=== PATIENT | female | born 1990 | race Caucasian/White ===

== ENCOUNTER 2023-05-21 15:52 | Emergency (ER) | payer BC, SELFPAY ==
--- NOTE | 2023-05-21 15:56 | ECG_ITS ---
Measurements Intervals [place] Rate: 83 P: 44 PA: 135 QRS: 37 QRSD: 96 T: 34 QT: 372 QTc: 439 Interpretive Statements SINUS RHYTHM BASELINE ARTIFACT- I, II, III, AVR NORMAL ECG NO PREVIOUS ECG AVAILABLE FOR COMPARISON Electronically Signed On 05-21-2023 16:02:52 ENVIRONMENTAL PROFESSIONAL by Agustin Palumbo D.O.
[2023-05-21 15:57] VITALS: PULSE 89; RESP 22; TEMP 36.6
[2023-05-21 16:02] VITALS: PULSE 78
[2023-05-21 16:08] LABS: Basophils Percent Auto 0.3 % (0.2-1.2); Eosinophils Absolute Auto 0.1 K/mm3 (0-0.3); Hematocrit 34.1 % (37.0-47.0); Hemoglobin 11.4 g/dL (12.0-15.0); Immature Granulocyte Absolute 0.03 K/mm3 (0.00-0.031); Immature Granulocyte Percent A 0.3 % (0-0.5); Lymphocytes Percent Auto 16.1 % (18.3-44.2); Mean Corpuscular HGB Conc 33.4 g/dl (32-36); Mean Corpuscular Hemoglobin 30.5 pg (26-34); Mean Corpuscular Volume 91.2 fl (80-100); Mean Platelet Volume 10.9 fl (7.4-10.4); Monocytes Absolute Auto 0.4 K/mm3 (0.1-0.6); Monocytes Percent Auto 4.4 % (2.6-8.5); Neutrophils Absolute Auto 7.3 K/mm3 (1.3-6.7); Neutrophils Percent Auto 77.9 % (45.5-73.1); Platelet Count Result 188 k/mm3 (150-375); Red Blood Count 3.74 M/mm3 (4.2-5.4); Red Cell Distribution Width 12.6 % (11.5-14.5); White Blood Count 9.3 K/mm3 (4.5-10.0)
[2023-05-21 16:18] LABS: Alanine Aminotransferase 16 U/L (6-35); Alkaline Phosphatase 51 U/L (38-126); Anion Gap 10 mmol/L (8-16); Aspartate Amino Transferase 18 U/L (14-36); Bilirubin,Total 0.3 mg/dL (0.2-1.3); Blood Urea Nitrogen 9 mg/dL (7-17); Calcium 9.5 mg/dL (8.4-10.2); Carbon Dioxide 24 mmol/L (22-30); Chloride 103 mmol/L (98-107); Estimated CRCL calculation 157 ml/min; Estimated Glomerular Filt Rate > 60; Glucose 101 mg/dL (65-110); INR 0.9; Lipase 74 U/L (23-300); Prothrombin Time 12.7 Seconds (11.1-14.7); Sodium 137 mmol/L (137-145)
[2023-05-21 16:19] LABS: Partial Thromboplastin Time 25.4 SECONDS (22.3-36.8)
[2023-05-21 16:30] LABS: Troponin I < 0.012 ng/mL (0.000-0.034)
[2023-05-21 16:32] LABS: Appearance Urine Clear (Clear); Bilirubin Urine Negative (Negative); Blood Urine Negative (Negative); Color Urine Yellow (Yellow); Glucose Urine UA Negative (Negative); Ketones Urine Negative (Negative); Leukocyte Esterase Ur Negative LEU/UL (Negative); Nitrate Urine Negative (Negative); Protein Urine Negative (Negative)
[2023-05-21 16:42] LABS: Add Urine Microscopic? NO
--- NOTE | 2023-05-21 18:01 | ED.CHESTPAIN ---
HPI - Chest Pain General Chief Complaint: Chest Pain Stated Complaint: Chest pain Time Seen by Provider: 05/21/23 16:00 History of Present Illness HPI narrative: Patient is a 33-year-old female who presents ER with symptoms chest pain. Began around 2:00 a.m.. Pressure. Left-sided. No radiation. It occurred just prior to eating and continued after eating. It resolved upon arrival here. No nausea or vomiting. No diaphoresis. No pain with deep breath. She is without hemoptysis. No recent trauma. Patient is 23 weeks . She is feeling baby move. No headache or change in vision. Patient with chronic hypertension and took her labetalol at 3:00 p.m. Related Data Home Medications Medication Instructions Recorded Confirmed albuterol sulfate 90 mcg/actuation 2 puff inhalation Q4H PRN 08/13/22 04/28/23 aerosol inhaler cetirizine 10 mg tablet (Zyrtec) 10 mg PO DAILY PRN 08/13/22 04/28/23 omega 7-rej-cgz-fish oil 1,000 mg 1 cap PO DAILY 08/13/22 04/28/23 (120 mg-180 mg) capsule (Fish Oil) prenat.vits,osmin,znm-ynjv-gizth 1 tablet PO DAILY 08/13/22 04/28/23 sertraline 50 mg tablet 50 mg PO DAILY 08/13/22 04/28/23 Allergies Allergy/AdvReac Type Severity Reaction Status Date / Time aspirin Allergy Severe SOB Verified 04/28/23 08:19 ibuprofen Allergy Severe SOB Verified 04/28/23 08:19 NSAIDS (Non-Steroidal Allergy Severe SOB Verified 04/28/23 08:19 Anti-Inflamma Review of Systems Review of Systems: All systems reviewed & are unremarkable except as noted in HPI and below Constitutional: Constitutional: Reports no additional constitutional complaints ENT: Reports system reviewed and no additional complaints, except as documented Cardiovascular: Cardiovascular: Reports chest pain, Denies rapid heart rate and Denies radiating jaw, neck or arm pain Respiratory: Respiratory: Denies cough, Denies dyspnea and Denies wheezing Gastrointestinal: Gastrointestinal: Reports no additional gastrointestinal complaints Genitourinary: Genitourinary: Reports no additional female genitourinary complaints Integumentary/Breasts: Skin/Breast: Reports system reviewed and no additional complaints, except as docu PMFSH Past Medical History Medical History Anxiety Asthma Hypertension Sleep apnea Surgical History Surgical History [place] teeth extracted Family History Family History Grandparent Breast cancer, Onset Age: 40 Mother Asthma Hypertension Breast cancer, Onset Age: 59 Father Hypertension Sibling Hypertension Anxiety Social History Social History Smoking status: Never smoker Alcohol intake: current Alcohol use details: socially; seldom Substance use: never Substance use type: does not use Lack of Transportation: No Lack of Food: Never True Current Housing: I Have Housing Concerned About Future Housing: No Difficulty Paying Gas/Electric Bills: No Difficulty Paying for Meds: No Currently Unemployed: No Education: Bachelor's Degree Difficulty w/ Childcare or Family Care: No Living arrangements: with family Occupation/Education: occupation 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 HEAD: Normocephalic, atraumatic. ENT: Mucous membranes moist. NECK: Supple. CHEST: Clear to auscultation. No respiratory distress. HEART: Regular rate and rhythm. Normal peripheral pulses. ABDOMEN: Soft, nontender, nondistended. EXTREMITIES: Normal range of motion. No edema. SKIN: Warm, dry, no rash. NEURO: Alert and o
--- NOTE | 2023-05-21 19:06 | ECG_ITS ---
Measurements Intervals [place] Rate: 76 P: 24 RI: 140 QRS: 27 QRSD: 96 T: 12 QT: 391 QTc: 442 Interpretive Statements SINUS RHYTHM BASELINE WANDER- III, AVF, V3 NORMAL ECG COMPARED TO ECG 05/21/2023 16:02:42 NO SIGNIFICANT CHANGES Electronically Signed On 05-21-2023 19:34:34 COMMUNICATIONS OPERATOR by Agustin Palumbo D.O.
[2023-05-21 19:17] VITALS: PULSE 75
[2023-05-21 19:18] VITALS: O2SAT 100
[2023-05-21 19:19] VITALS: BP 146/66; PULSE 76; RESP 27; TEMP 36.4; O2SAT 98
[2023-05-21 19:35] LABS: Troponin I < 0.012 ng/mL (0.000-0.034)
== END 2023-05-21 19:56 | disposition home or self-care (01) ==
PROVIDERS: Emergency Provider Emergency Medicine; PCP Family Medicine
DX: R07.89 Other chest pain (principal); J45.909 Unspecified asthma, uncomplicated; I10 Essential (primary) hypertension; G47.30 Sleep apnea, unspecified; F41.9 Anxiety disorder, unspecified
CPT/HCPCS: 36415; 80053; 81003; 83690; 84484; 85025; 85610; 85730; 93005; 99284

== ENCOUNTER 2023-08-27 16:02 | Inpatient (IN) | payer BC, SELFPAY ==
[2023-08-27] VITALS (14 sets, daily range): BP systolic 134–156; BP diastolic 56–81; PULSE 57–77; TEMP 36.3–36.6; BMI 59.5
[2023-08-27 16:52] LABS: Basophils Percent Auto 0.1 % (0.2-1.2); Eosinophils Absolute Auto 0.1 K/mm3 (0-0.3); Eosinophils Percent Auto 0.8 % (0-4.4); Hematocrit 32.7 % (37.0-47.0); Hemoglobin 11.2 g/dL (12.0-15.0); Immature Granulocyte Absolute 0.02 K/mm3 (0.00-0.031); Immature Granulocyte Percent A 0.3 % (0-0.5); Lymphocytes Absolute Auto 1.45 K/mm3 (0.9-3.2); Lymphocytes Percent Auto 19.4 % (18.3-44.2); Mean Corpuscular HGB Conc 34.3 g/dl (32-36); Mean Corpuscular Volume 87.7 fl (80-100); Mean Platelet Volume 11.3 fl (7.4-10.4); Monocytes Absolute Auto 0.4 K/mm3 (0.1-0.6); Neutrophils Absolute Auto 5.6 K/mm3 (1.3-6.7); Neutrophils Percent Auto 74.4 % (45.5-73.1); Platelet Count Result 194 k/mm3 (150-375); Red Blood Count 3.73 M/mm3 (4.2-5.4); Red Cell Distribution Width 13.2 % (11.5-14.5); White Blood Count 7.5 K/mm3 (4.5-10.0)
--- NOTE | 2023-08-27 16:58 | LDADM ---
This patient, Mariajose Sheth, was admitted to Labor/Delivery/Recovery 108 on 08/27/23 at 16:02. Plans for labor, pain management and were discussed with patient. Patient/family oriented to hospital policies and general routines including ID bracelet, bed and alarms, visiting hours, pain management, procedures, bathroom and other care routines, personal items, smoking policy, room service/diet and guest tray routines, security routines, and visiting hours. Patient/Family are encouraged to report perceived risks to care and to ask questions if they do not understand what they are told or what they should do. See OBIX for further documentation.
[2023-08-27 17:08] LABS: Alanine Aminotransferase 14 U/L (6-35); Albumin Level 3.8 g/dL (3.5-5.1); Alkaline Phosphatase 77 U/L (38-126); Anion Gap 7 mmol/L (4-12); Aspartate Amino Transferase 17 U/L (14-36); Bilirubin,Total 0.3 mg/dL (0.2-1.3); Blood Urea Nitrogen 11 mg/dL (7-17); Calcium 9.4 mg/dL (8.4-10.2); Carbon Dioxide 21 mmol/L (22-30); Chloride 107 mmol/L (98-107); Estimated Glomerular Filt Rate > 60; Glucose 93 mg/dL (65-110); Potassium 4.1 mmol/L (3.4-5.0); Sodium 135 mmol/L (137-145); Uric Acid 7.5 mg/dL (2.5-7.5)
[2023-08-27] MEDS: DINOPROSTONE 10 MG VAG INSERT VAGINAL (17:19)
[2023-08-27 17:46] LABS: HIV 1/2 Ab P24 Ag Result Negative (Negative)
--- NOTE | 2023-08-27 17:53 | WPDANESEPP ---
Anes - Eval Pre Procedure Procedure: labor epidural Date/Time: 08/27/23 17:53 Surgeon: ozzy Preop Diagnosis: pain during labor Pre Op Diagnosis: IOL Patient Data Age: 33 Gender: F Height: 1.7 m Weight: 172.5 kg Last Vital Signs Pulse 57 L 08/27/23 17:31 BP 154/69 H 08/27/23 17:31 O2 Del Method Room Air 08/27/23 16:56 Allergies Allergy/AdvReac Type Severity Reaction Status Date / Time aspirin Allergy Severe SOB Verified 08/26/23 17:27 ibuprofen Allergy Severe SOB Verified 08/26/23 17:27 NSAIDS (Non-Steroidal Allergy Severe SOB Verified 08/26/23 17:27 Anti-Inflamma Home Medications Medication Instructions Recorded Confirmed Type cetirizine 10 mg tablet (Zyrtec) 10 mg PO DAILY PRN Allergic 08/13/22 08/26/23 History Symptoms omega 4-zae-jbb-fish oil 1,000 mg 1 cap PO DAILY 08/13/22 08/26/23 History (120 mg-180 mg) capsule (Fish Oil) prenat.vits,osmin,yde-gcgf-uelfs 1 tablet PO DAILY 08/13/22 08/27/23 History ondansetron HCl 4 mg tablet 4 mg PO Q6H PRN nausea and 04/28/23 08/27/23 Rx vomiting #30 tabs famotidine 20 mg tablet 20 mg PO DAILY #14 tabs 05/21/23 08/27/23 Rx sertraline 100 mg tablet (Zoloft) 100 mg PO DAILY #90 tabs 07/15/23 08/26/23 Rx albuterol sulfate 90 mcg/actuation 2 puff inhalation Q4H PRN 07/27/23 08/26/23 Rx aerosol inhaler shortness of breath or wheezing #6.7 grams labetalol 200 mg tablet 600 mg PO Q8H 08/19/23 08/26/23 History ferrous sulfate 27 mg iron tablet 65 mg PO DAILY 08/27/23 08/27/23 History Laboratory Tests 08/27/23 08/27/23 08/27/23 16:45 16:45 16:45 WBC 7.5 K/mm3 (4.5-10.0) RBC 3.73 L M/mm3 (4.2-5.4) Hgb 11.2 L g/dL (12.0-15.0) Hct 32.7 L % (37.0-47.0) MCV 87.7 fl (80-100) MCH 30.0 pg (26-34) MCHC 34.3 g/dl (32-36) RDW 13.2 % (11.5-14.5) Plt Count 194 k/mm3 (150-375) MPV 11.3 H fl (7.4-10.4) Immature Gran % (Auto) 0.3 % (0-0.5) Neut % (Auto) 74.4 H % (45.5-73.1) Lymph % (Auto) 19.4 % (18.3-44.2) [place] % (Auto) 5.0 % (2.6-8.5) Eos % (Auto) 0.8 % (0-4.4) Baso % (Auto) 0.1 L % (0.2-1.2) Lymph # (Auto) 1.45 K/mm3 (0.9-3.2) [place] # (Auto) 0.4 K/mm3 (0.1-0.6) Eos # (Auto) 0.1 K/mm3 (0-0.3) Baso # (Auto) 0.0 K/mm3 (0.0-0.1) Abs Immat Gran (auto) 0.02 K/mm3 (0.00-0.031) Absolute Neuts (auto) 5.6 K/mm3 (1.3-6.7) Absolute Nucleated RBC 0.000 K/mm3 (0.0-0.012) Nucleated RBC % 0.0 % (0.0-0.2) Sodium 135 L mmol/L Cancelled (137-145) Potassium 4.1 mmol/L Cancelled (3.4-5.0) Chloride 107 mmol/L (98-107) Carbon Dioxide Anion Gap BUN Creatinine Estim Creat Clear Calc Estimated GFR Glucose Uric Acid Calcium Total Bilirubin AST ALT Alkaline Phosphatase Total Protein Albumin RPR HIV 1&2 Ab/P24 Ag 4thGn Blood Type Antibody Screen 08/27/23 08/27/23 08/27/23 16:45 16:45 16:45 WBC RBC Hgb Hct MCV MCH MCHC RDW Plt Count MPV Immature Gran % (Auto) Neut % (Auto) Lymph % (Auto) [place] % (Auto) Eos % (Auto) Baso % (Auto) Lymph # (Auto) [place] # (Auto) Eos # (Auto) Baso # (Auto) Abs Immat Gran (auto) Absolute Neuts (auto) Absolute Nucleated RBC Nucleated RBC % Sodium Potassium Chloride Cancelled
--- NOTE | 2023-08-27 20:56 | PM.IMHP ---
H&P: HPI History of Present Illness Date/Time: 08/27/23 20:56 Chief Complaint: induction of labor Narrative: Mariajose is a 33yo @ 37.0wks who presents to L&D for scheduled IOL. She has hard to treat HTN and has required multiple dosage increased in her third trimester. She has been seeing MFM and undergoing twice weekly ANT. She recently did a 24 hour urine protein collection; 180g noted. She denies symptoms of PEC. Feeling good movement. No VB or LOF. Her is complicated by: - CHTN on labetalol 200mg BID, MFM increased to 400mg TID --> 500mg TID @ 31wks --> 600mg TID 35wks... has ASA ALLERGY - AMA; MFM for scans/NIPT - Morbid obesity; pre-preg BMI 54 - Asthma - Sleep apnea - Anxiety on zoloft 100 - Rubella non-immune - Covid @ 32wga - EFW 89%ile, AC >99%ile on recent MFM scan Review of Systems Constitutional: Constitutional: Denies chills, Denies fever(s) and Denies headache(s) Eyes: Eyes: Denies change in vision ENT: Denies headache(s) Cardiovascular: Cardiovascular: Denies chest pain and Denies dyspnea Respiratory: Respiratory: Denies dyspnea Genitourinary: Genitourinary: Denies abnormal vaginal bleeding and Denies vaginal discharge Neurologic: Denies headache(s) Psychiatric: Psychiatric: Denies anxiety and Denies depression [facility] Past Medical History Medical History (Updated 08/27/23 @ 21:03 by Chana Cheema MD) Anxiety Asthma Hypertension Morbid obesity with BMI of 50.0-59.9, adult Sleep apnea Surgical History Surgical History [place] teeth extracted Family History Family History Grandparent Breast cancer, Onset Age: 40 Mother Asthma Hypertension Breast cancer, Onset Age: 59 Father Hypertension Sibling Hypertension Anxiety Social History Social History Smoking status: Never smoker Alcohol intake: current Alcohol use details: socially; seldom Substance use: never Substance use type: does not use Do You Feel Safe in your Home?: Yes Lack of Transportation: No Lack of Food: Never True Current Housing: I Have Housing Concerned About Future Housing: No Difficulty Paying Gas/Electric Bills: No Difficulty Paying for Meds: No Currently Unemployed: No Education: Bachelor's Degree Difficulty w/ Childcare or Family Care: No Living arrangements: with family Occupation/Education: occupation 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 Gender identity (if verbalized by the patient): Female Sexual Orientation (if Verbalized by the Patient): Straight or Heterosexual Spiritual care concerns: No Meds Home Medications and Allergies Home Medications Medication Instructions Recorded Confirmed Type cetirizine 10 mg tablet (Zyrtec) 10 mg PO DAILY PRN Allergic 08/13/22 08/26/23 History Symptoms omega 6-jyx-ult-fish oil 1,000 mg 1 cap PO DAILY 08/13/22 08/26/23 History (120 mg-180 mg) capsule (Fish Oil) prenat.vits,osmin,vmg-hguy-nyvbi 1 tablet PO DAILY 08/13/22 08/27/23 History ondansetron HCl 4 mg tablet 4 mg PO Q6H PRN nausea and 04/28/23 08/27/23 Rx vomiting #30 tabs famotidine 20 mg tablet 20 mg PO DAILY #14 tabs 05/21/23 08/27/23 Rx sertraline 100 mg tablet (Zoloft) 100 mg PO DAILY #90 tabs 07/15/23 08/26/23 Rx albuterol sulfate 90 mcg/actuation 2 puff inhalation Q4H PRN 07/27/23 08/26/23 Rx aerosol inhaler shortness of breath or wheezing #6.7 grams labetalol 200 mg tablet 600 mg PO Q8H 08/19/23 08/26/23 History ferrous sulfate 27 mg iron tablet 65 mg PO DAILY 08/27/23 08/27/23 History Allergies Allergy/AdvReac Type Severity Reaction Status Date / Time aspirin Allergy Severe SOB Verified 08/26/23 17:27 ibuprofen Allergy Severe SOB Verified 08/26/23 17:27 NSAIDS (Non-Steroidal Allergy Severe SOB Verified 08/26/23 17:27 Anti
[2023-08-27] MEDS: LABETALOL HCL 100 MG TABLET 600 MG PO (23:43)
[2023-08-28] VITALS (58 sets, daily range): BP systolic 134–166; BP diastolic 63–88; PULSE 56–80; RESP 16–18; TEMP 36.4–37
[2023-08-28] MEDS: SERTRALINE HCL 50 MG TABLET 100 MG PO (07:14)
[2023-08-28] MEDS: LABETALOL HCL 100 MG TABLET 600 MG PO ×3 (07:15→22:05)
[2023-08-28] MEDS: miSOPROStol 25 MCG TABLET PO (07:16)
--- NOTE | 2023-08-28 07:34 | PM.OBPNLAB ---
Pain Control Date/time seen: 08/28/23 07:34 Pain control: tolerating well Pelvic Exam Dilation (cm): 1 Effacement (%): 50 station: -2 Amniotic membrane status: Intact Contractions Monitor mode: External Contraction pattern: Irregular Status status: Category l Assessment and Plan Assessment: induction ongoing Plan: continuous present management Comments: cytotec 25mcg buccal; will reassess after that BPs in moderate range; pt asymptomatic
[2023-08-28] MEDS: miSOPROStol 25 MCG TABLET VAGINAL (12:00)
[2023-08-28 12:23] LABS: Rapid Plasma Reagin Non-Reactive (NonReactive)
[2023-08-28] MEDS: miSOPROStol 25 MCG TABLET 50 MCG PO (16:20)
[2023-08-28] MEDS: DINOPROSTONE 10 MG VAG INSERT VAGINAL (21:35)
[2023-08-28] MEDS: MAGNESIUM HYDROXIDE SUSP 30 ML UDC PO (23:39)
[2023-08-29] VITALS (100 sets, daily range): BP systolic 101–163; BP diastolic 55–84; PULSE 51–75; RESP 11–20; TEMP 36.2–37.6; O2SAT 93–100
[2023-08-29] MEDS: LABETALOL HCL 100 MG TABLET 600 MG PO ×2 (05:50→17:16)
[2023-08-29] MEDS: ONDANSETRON INJ 4 MG/2 ML VIAL IV PUSH (08:10)
[2023-08-29] MEDS: SERTRALINE HCL 50 MG TABLET 100 MG PO (09:52)
[2023-08-29] MEDS: OXYTOCIN 30 UNITS/NS 500 ML 30 UNITS/500 ML BAG 6 UNITS IV CONT (10:59)
[2023-08-29] MEDS: LACTATED RINGERS 1,000 ML 125 ML IV CONT ×2 (10:59→12:47)
--- NOTE | 2023-08-29 11:56 | PM.OBPNLAB ---
Pain Control Date/time seen: 08/29/23 11:56 Pain control: tolerating well Pelvic Exam Dilation (cm): 0 Effacement (%): 0 station: -4 Amniotic membrane status: Intact Contractions Monitor mode: External Contraction pattern: Irregular Status status: Category l Assessment and Plan Assessment: induction ongoing Plan: Comments: cervix was evaluated and noted to be closed. station was assessed at -4. Discussed these findings with the patient despite 2 doses of cervidil and 3 doses of cytotec. Discussed primary for failed IOL vs coninued IOL with pitocin. Given patients whittaker score and remote from delivery status, decision was made to proceed with . Risks, benfits, alternatives discussed at length.
[2023-08-29] MEDS: AZITHROMYCIN 500 MG/NS 250 ML 500 MG/250 ML BAG 250 MG IVPB (12:05)
[2023-08-29] MEDS: FAMOTIDINE 20 MG/2 ML VIAL IV PUSH (12:48)
[2023-08-29] MEDS: ceFAZolin 3 GM/D5W 100 ML 100 ML IVPB (13:09)
--- NOTE | 2023-08-29 14:11 | W.PM.OBCSD ---
OB - Delivery Note Procedure Delivery date: 08/29/23 Pre-op diagnosis: Arrest of Dilation and Preeclampsia w/o severe features Post-op Diagnosis: Same Induction method: Per Cervidil Protocol Delivery augmentation: Pitocin Delivery monitor: External FHT Prior to decision for section, ACOG/SMFM labor guidelines were considered and discussed with the patient and staff. Decision made to proceed with the section.: Yes Procedure Performed: Primary Primary branch: low cervical, transverse Surgeon: Zaid Hope MD Anesthesia type: Spinal Description of Procedure/Findings: The patient was taken to the operating room. A combined spinal epidural anesthesic was administered and found to be adequate at a t-10 level. The patient was placed in a supine position with a slight left lateral tilt. A robles catheter was placed with return of clear urine. A Bovie grounding pad was placed. Surgical prep was performed and surgical drapes were placed. A surgical time out was performed. A Pfannenstiel skin incision was then made with the scalpel and carried through to the underlying layer of fascia. The fascia was then incised in the midline and the incision was extended laterally with the Mccrary scissors. The superior aspect of the fascia was then grasped with the Lorenzo clamps, elevated, and the underlying rectus muscles dissected off bluntly and sharply. Attention was then turned to the inferior aspect of this incision which, in a similar fashion, was grasped, tented up with the Lorenzo clamps, and the rectus muscles dissected off both bluntly and sharply. The rectus muscles were then in the midline. The peritoneum was identified and entered bluntly. The peritoneal incision was then extended superiorly and inferiorly with good visualization of the bladder. An Leonides ring retractor was placed for better visualization. The uterus was inspected for rotation. A low-transverse uterine incision was made sharply with the scalpel and entry was made into the uterine cavity. An amniotomy was made and copious amounts of clear fluid were noted on return. The uterine incision was extended laterally bluntly. The fetus was delivered atraumatically. The nose and mouth were suctioned with a bulb syringe. The umbilical cord was clamped twice and cut. The infant was handed off to the waiting staff. At the time of the delivery, the had good color, tone and grimace. The cried with minimal stimulation. A second segment of umbilical cord was clamped and cut for cord blood gasses. Cord blood was collected for determination of the blood type and for direct Pagan. The placenta was delivered spontaneously without difficulty. The placenta appeared grossly normal and complete. The uterus was exteriorized and cleared of all clots and debris. The uterine incision was repaired using 0-monocryl suture in a running fashion. A second layer of 0 Monocryl suture was used in an imbricating fashion to obtain excellent hemostasis and uterine strength. The uterine closure was inspected for hemostasis. Hemoderm powder was placed on the hysterotomy. The posterior aspect of the uterus and the broad ligaments were inspected and the posterior cul-de-sac cleared of fluid and blood clots. The uterine closure was again inspected and found to be hemostatic. The ring retractor was removed from the abdominal cavity. The pericolic gutters were inspected and were cleared of all blood clots and debris. The uterine closure was then re inspected to ensure hemostasis as were all subfascial tissues. The peritoneum was closed using 3-0 vicryl in a running fashion. The fascia was reapproximated with 0-vicryl in a running fashion. The subcutaneous tissue was irrigated and hemostasis achieved with electrocautery. It was reapproximated with 3-0 vicryl in a running fashion. The skin was closed with bernard. A sterile PICCO vacuum dressing was applied to the wound. The patient
[2023-08-29] MEDS: fentaNYL CITRATE INJ (*CRX) 100 MCG/2 ML VIAL 25 MCG IV PUSH (16:02)
--- NOTE | 2023-08-29 16:35 | SUR.PHASEI ---
pt to nursery to visit with baby before transferring to
--- NOTE | 2023-08-29 17:07 | PC.NURSE ---
pt to 288 via bed with significant other.
--- NOTE | 2023-08-29 17:55 | PC.NURSE ---
Patient transferred to post room #288 via bed. Support person present. Oriented to unit, room, information board, rooming in, admission packet and security measures. Patient verbalizes understanding.
--- NOTE | 2023-08-29 19:40 | PC.NURSE ---
Discussed plan of care for the evening with patient and offered to set up a breast pump for her since infant is in the level 2 nursery. Patient declined at this time stating she would let me know when she's ready to pump. Educated her on the importance of hand expression or pumping while away from to protect milk supply. Patient v/u.
[2023-08-29] MEDS: DEXTROSE 5%/0.45% SOD CHL 1,000 ML 125 ML IV CONT (20:40)
[2023-08-29] MEDS: HYDROcodone/acetaminophen (*CRX) 5-325 MG TABLET 1 TAB PO (20:40)
[2023-08-29] MEDS: SIMETHICONE 80 MG TAB.CHEW PO (20:40)
[2023-08-30] VITALS (8 sets, daily range): BP systolic 112–146; BP diastolic 52–87; PULSE 65–85; RESP 18–20; TEMP 36.6–37.1; O2SAT 97–98
[2023-08-30] MEDS: LABETALOL HCL 100 MG TABLET 600 MG PO ×3 (00:30→22:35)
[2023-08-30] MEDS: HYDROcodone/acetaminophen (*CRX) 10-325 MG TABLET 1 TAB PO ×7 (00:30→21:06)
[2023-08-30 06:03] LABS: Basophils Percent Auto 0.3 % (0.2-1.2); Eosinophils Percent Auto 0.4 % (0-4.4); Hematocrit 29.4 % (37.0-47.0); Hemoglobin 9.8 g/dL (12.0-15.0); Immature Granulocyte Absolute 0.05 K/mm3 (0.00-0.031); Immature Granulocyte Percent A 0.6 % (0-0.5); Lymphocytes Absolute Auto 1.52 K/mm3 (0.9-3.2); Lymphocytes Percent Auto 19.7 % (18.3-44.2); Mean Corpuscular HGB Conc 33.3 g/dl (32-36); Mean Corpuscular Hemoglobin 30.2 pg (26-34); Mean Corpuscular Volume 90.7 fl (80-100); Mean Platelet Volume 11.4 fl (7.4-10.4); Monocytes Absolute Auto 0.5 K/mm3 (0.1-0.6); Monocytes Percent Auto 6.1 % (2.6-8.5); Neutrophils Absolute Auto 5.6 K/mm3 (1.3-6.7); Neutrophils Percent Auto 72.9 % (45.5-73.1); Platelet Count Result 158 k/mm3 (150-375); Red Blood Count 3.24 M/mm3 (4.2-5.4); Red Cell Distribution Width 13.2 % (11.5-14.5); White Blood Count 7.7 K/mm3 (4.5-10.0)
[2023-08-30] MEDS: SIMETHICONE 80 MG TAB.CHEW PO ×4 (08:40→23:50)
[2023-08-30] MEDS: FAMOTIDINE 20 MG TABLET PO (08:40)
[2023-08-30] MEDS: POLYSACCHARIDE IRON COMPLEX 150 MG CAPSULE PO ×2 (08:40→15:17)
[2023-08-30] MEDS: MULTIVIT/MIN/PREN/FOL AC/IRON TABLET 1 TAB PO (08:40)
[2023-08-30] MEDS: DOCUSATE SODIUM 100 MG CAPSULE PO ×2 (08:40→15:17)
[2023-08-30] MEDS: OMEGA 3 POLYUNSAT FATTY ACIDS 1 GM CAP PO (08:40)
[2023-08-30] MEDS: SERTRALINE HCL 50 MG TABLET 100 MG PO (08:40)
--- NOTE | 2023-08-30 09:02 | WPDANLDPN2 ---
Anes-Prog Note L&D Date/Time: 08/30/23 09:02 Comfortable throughout: section Epidural/Spinal procedure site: clean & non-tender Neuro status: Neuro function grossly intact. Cardiovascular status: normal Respiratory status: normal Airway patency: baseline Mental status: baseline Post-Op hydration status: normal Vital Signs: Last Vital Signs Temp 98.3 F 08/30/23 07:43 Pulse 73 08/30/23 08:30 Resp 20 08/30/23 07:43 BP 123/56 L 08/30/23 08:30 Pulse Ox 97 08/30/23 07:43 O2 Del Method Room Air 08/29/23 19:40 Pain score (VAS): 5 I/O: Intake & Output 08/29/23 08/30/23 08/30/23 23:59 07:59 15:59 Intake Total 300 1400 Output Total 400 1050 400 Balance -100 350 -400 Post-procedural complaints: none Patient feedback: Patient satisfied with anesthetic care.
--- NOTE | 2023-08-30 09:03 | WPDANLDNPN2 ---
Anes-Prog Note L&D-Neuraxial Date/Time: 08/30/23 09:03 Neuraxial medications: intrathecal PF morphine Opiod-related complaints: none Patient feedback: Patient satisfied with post-operative pain management.
--- NOTE | 2023-08-30 12:11 | PM.OBPNVD ---
OB - PN: Subj Subjective Date/time seen: 08/30/23 12:11 Interval history: Pt doing well this morning. She states her pain is controlled with PO medications. She is ambulating this morning. She reports fatigue and dizziness. Blood pressures have been normotensive. She denies any bleeding issues. Pt has been able to void without her catheter. Patient comments: pain well controlled, incisional pain, tolerating diet and flatus present baby status: doing well OB - PN: Obj Data Labs 08/30/23 05:53 08/27/23 16:45 Labs: Laboratory Results - last 24 hr 08/30/23 05:53 WBC 7.7 RBC 3.24 L Hgb 9.8 L Hct 29.4 L MCV 90.7 MCH 30.2 MCHC 33.3 RDW 13.2 Plt Count 158 MPV 11.4 H Immature Gran % (Auto) 0.6 H Neut % (Auto) 72.9 Lymph % (Auto) 19.7 [place] % (Auto) 6.1 Eos % (Auto) 0.4 Baso % (Auto) 0.3 Lymph # (Auto) 1.52 [place] # (Auto) 0.5 Eos # (Auto) 0.0 Baso # (Auto) 0.0 Abs Immat Gran (auto) 0.05 H Absolute Neuts (auto) 5.6 Absolute Nucleated RBC 0.000 Nucleated RBC % 0.0 OB - PN A/P Assessment and Plan (1) Hypertension: Code(s): I10 - Essential (primary) hypertension Status: Acute Assessment and Plan: pt previously on Labetalol 600 mg Q 8 Hr Pt has been normotensive after delivery pt feeling fatigue and dizzy this morning will hold her next labetalol dose and monitor blood pressure pt also have a drop in hemoglobin after surgery encouraged PO hydration, rest, regular diet today will continue to monitor symptoms, blood pressures, and blood loss Plan day: 1 Plan: routine care Comments: patient doing well H/H , pt reports feeling dizzy and fatigued, will continue to monitor afebrile, VSS incision C/D/I, dressing dry robles removed, voiding spontaneously continue routine post op care Time Spent With Patient Time: Total time spent is greater than 50% in coordination of care (as documented) at patient's floor/unit and/or counseling patient: Time with patient: less than 15 minutes Review of Systems Constitutional: Constitutional: Reports no additional constitutional complaints Cardiovascular: Cardiovascular: Reports no additional cardiovascular complaints Respiratory: Respiratory: Reports no additional respiratory complaints Gastrointestinal: Gastrointestinal: Reports no additional gastrointestinal complaints Genitourinary: Genitourinary: Reports no additional female genitourinary complaints Exam Const: General: comfortable and no acute distress Resp: Effort & Inspection: normal respiratory effort Auscultation: clear to auscultation bilaterally Cardio: Rate: regular rate GI: GI Palp: Yes Soft to palpation, Yes Tenderness to palpation present (GI) (around incision ) and No Guarding due to palpation present (GI) Auscultation: normal bowel sounds Other: incision covered with PICCO vacuum dressing, dressing dry Psych: Appearance: grossly normal Mental Status: mental status grossly normal Affect: normal affect
[2023-08-31] VITALS (10 sets, daily range): BP systolic 138–157; BP diastolic 53–89; PULSE 71–88; RESP 16–20; TEMP 36.3–37.1; O2SAT 97–100
[2023-08-31] MEDS: HYDROcodone/acetaminophen (*CRX) 10-325 MG TABLET 1 TAB PO ×2 (00:35→04:21)
[2023-08-31] MEDS: ACETAMINOPHEN 325 MG TABLET 650 MG PO ×3 (08:44→21:22)
[2023-08-31] MEDS: LABETALOL HCL 100 MG TABLET 600 MG PO ×2 (08:44→15:08)
[2023-08-31] MEDS: SIMETHICONE 80 MG TAB.CHEW PO ×2 (08:45→15:08)
[2023-08-31] MEDS: POLYSACCHARIDE IRON COMPLEX 150 MG CAPSULE PO ×2 (08:45→15:08)
[2023-08-31] MEDS: MULTIVIT/MIN/PREN/FOL AC/IRON TABLET 1 TAB PO (08:45)
[2023-08-31] MEDS: DOCUSATE SODIUM 100 MG CAPSULE PO ×2 (08:45→15:08)
[2023-08-31] MEDS: OMEGA 3 POLYUNSAT FATTY ACIDS 1 GM CAP PO (08:46)
[2023-08-31] MEDS: HYDROcodone/acetaminophen (*CRX) 5-325 MG TABLET 1 TAB PO ×3 (08:46→21:21)
[2023-08-31] MEDS: SERTRALINE HCL 50 MG TABLET 100 MG PO (08:46)
[2023-08-31] MEDS: FAMOTIDINE 20 MG TABLET PO (08:47)
--- NOTE | 2023-08-31 11:09 | P.PNOB_ITS ---
OB - PN: Subj Subjective Date/time seen: 08/31/23 11:09 Narrative: POD#2 Mariajose reports doing well today. 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 Her pain is controlled on the higher dose of pain meds; having a lot of gas pain. She is tolerating regular diet, voiding, passing gas x1. She has ambulated in the room. She denies any issues with her incision. She is breast feeding. OB - PN: Obj Data Labs 08/30/23 05:53 08/27/23 16:45 OB - PN A/P Assessment and Plan (1) S/P primary low transverse : Code(s): Z98.891 - History of uterine scar from previous surgery Status: Acute (2) Chronic hypertension with exacerbation during in third trimester: Code(s): O10.913 - Unspecified pre-existing hypertension complicating , third trimester Status: Acute Plan day: 2 Plan: routine care Comments: - continue labetalol; will slowly decrease dose 600/600/400 - If BP 120/80 or less, will give 200mg less at the next dose (or if pt is dizzy) - continue PO pain meds - hydration and increased ambulation encouraged - continue putting baby to breast Time Spent With Patient Time: Total time spent is greater than 50% in coordination of care (as documented) at patient's floor/unit and/or counseling patient: Review of Systems Constitutional: Constitutional: Denies chills, Denies fever(s) and Denies head ache(s) Eyes: Eyes: Denies change in vision ENT: Denies dizziness and Denies headache(s) Cardiovascular: Cardiovascular: Denies chest pain, Denies palpitations and Denies dyspnea Respiratory: Respiratory: Denies cough and Denies dyspnea Gastrointestinal: Gastrointestinal: Denies nausea and Denies vomiting Genitourinary: Comments: normal bleeding Neurologic: Denies dizziness and Denies headache(s) Endocrine: Endocrine: Denies palpitations Exam Const: General: cooperative, comfortable and no acute distress Orientation/consciousness: patient oriented x3 Resp: Effort & Inspection: normal respiratory effort Auscultation: clear to auscultation bilaterally Cardio: Rate: regular rate GI: Inspection: non-distended and incision (covered with clean dressing) GI Palp: Yes abdominal tenderness (appropriate) and Yes Soft to palpation Aus cultation: normal bowel sounds : Other: fundus firm Skin: General skin exam: normal color Neuro: General: patient oriented x3 Extrem: General: normal to inspection Psych: Appearance: grossly normal Affect: normal affect Attitude: coop erative
--- NOTE | 2023-08-31 11:15 | PC.NURSE ---
0815 Introductions were made, then consulted with patient to assess needs related to . Mother is napping. Resources provided for inpatient name written on the communication board. Mother states she will call for the next feeding and Father states that will be in the next hour. 0840 Purposefully rounded to assess for needs and the Primary RN is present doing patient care. [id number] Consulted with parents after a request. They are changing infants diaper after a bottle feeding session. Parent share that infant was too fussy to breastfeed. Instructions usage, that there should be no pain, pumping schedule for milk production, collection, and storage of human milk. Patient was encouraged to call for an assessment for correct placement and flange size. Instructed patient of how to protect her milk supply with frequent effective or to pump for stimulation for adequate milk production every 3 hours (8 times in 24 hours) 1-2 times at night. Mother states she is trying but has not been consistent with that and fears she will suffocate her child with . Parents are encouraged to record the pumping schedule on the feeding sheet.?We reviewed how to feed their infant with paced bottle feeding. Mother voiced understanding of the education shared along with mom/baby guide and the pump measurement, flange fit handout for additional resource information. 0935 Went in to review pumping and paced bottle feeding and Dr. Cheema is assessing patient. Hand outs were provided concerning paced bottle feeding and instructed father to call.
--- NOTE | 2023-08-31 12:57 | PC.NURSE ---
[id number] Consulted with patient to assess needs related to . Discussed with parents any concerns and questions they may have at this point. We reviewed working with the , supporting breast, protecting her nipples with an optimal deep latch, good positioning, and good hand washing. Encouraged understanding the benefits of skin to skin, responding to feeding cues, frequencies of feeding 8-12 times in 24 hours (approximately 2-3 hours), duration of feedings, milk production, intake/output feeding sheet and signs of adequate intake encouraging swallowing at the breast. Reviewed positioning and alignment, supporting breast, off-centered (asymmetrical latch) and leading with the chin with big, open, wide gape. latched optimally to the left breast in cross cradle, then the right breast in football position. Education given to the parents of how to visualize the suckling (with good rocking jaw motion) swallows (dropping of the lower jaw) and demonstrates occasionally. The was able to maintain latch without discomfort to mother. On assessment the breast have a hypoplastic appearance with a wide space, breast flat pointing downward missing some roundness. Reviewed protecting her milk supply with added pumping (breast stimulations of at least 8 in a 24 hour period with 1-2 times at night) if the infant doesn't effectively latch and/or receives formula bottles. Mother states she is tired and there's a lot to do. Encouraged effectively as to not need to pump. Pumping is a suggestion if needed to protect the milk supply. We discussed the possibility of a milk delay and late behaviors. Parents discussed their decision to supplement, risks, benefits, feeding on demand and paced bottle feeding. Nipple care reviewed with optimal latch, good positioning and using clean hands when touching her breast. Resources used to facilitate learning were used from the visual handouts/ tool/mom and baby guide. Parents voiced understanding of the education shared, to call for assistance if the does not latch or if there is discomfort with .
[2023-08-31] MEDS: LIDOCAINE 5% PATCH 1 PATCH TRANSDERM (15:11)
[2023-08-31] MEDS: LABETALOL HCL 100 MG TABLET 400 MG PO (21:58)
[2023-09-01 04:30] VITALS: BP 135/67; PULSE 69; RESP 16; TEMP 36.6; O2SAT 97
[2023-09-01] MEDS: HYDROcodone/acetaminophen (*CRX) 5-325 MG TABLET 1 TAB PO ×2 (04:53→12:07)
[2023-09-01] MEDS: ACETAMINOPHEN 325 MG TABLET 650 MG PO ×2 (04:54→12:06)
[2023-09-01 07:09] VITALS: PULSE 70
[2023-09-01] MEDS: LABETALOL HCL 100 MG TABLET 600 MG PO (07:09)
[2023-09-01 07:35] VITALS: BP 145/59; PULSE 79; RESP 20; TEMP 36.5; O2SAT 98
--- NOTE | 2023-09-01 07:53 | PM.OBDSVD ---
DS: Admitting Diagnosis Discharge Date 09/01/23 Admitting Diagnosis Induction of labor Hard to treat chronic HTN Morbid obesity Asthma DS: Discharge Diagnosis Discharge Diagnosis (1) S/P primary low transverse : Code(s): Z98.891 - History of uterine scar from previous surgery Status: Acute (2) Chronic hypertension with exacerbation during in third trimester: Code(s): O10.913 - Unspecified pre-existing hypertension complicating , third trimester Status: Acute (3) Morbid obesity with BMI of 50.0-59.9, adult: Code(s): E66.01 - Morbid (severe) obesity due to excess calories; Z68.43 - Body mass index [BMI] 50.0-59.9, adult Status: Acute OB - DS: Summary OB Procedures : NST, PIH Mgmt and Ultrasound OB Procedures Intrapartum: low cervical, transverse OB Procedures: : None Peripartum Data Delivery Method: Section Procedures: Procedures Operation Date: 08/29/23 12:30 Actual Procedure Side Surgeon p Section Zaid Hope MD complications: none 1: Gender: Female Disposition of : home Status at Discharge Functional status at discharge: independent ambulation Overall status at discharge: patient is back to baseline Time Spent with Patient Time attestation: Total time spent providing and/or coordinating discharge services: Exam Const: General: cooperative, comfortable, no acute distress and obese Orientation/consciousness: patient oriented x3 Resp: Effort & Inspection: normal respiratory effort Auscultation: clear to auscultation bilaterally Cardio: Rate: regular rate GI: Inspection: non-distended and incision (covered with STEPHIE dressing) GI Palp: No abdominal tenderness and Yes Soft to palpation Auscultation: normal bowel sounds : Other: fundus firm Skin: General skin exam: normal color Neuro: General: patient oriented x3 Extrem: General: normal to inspection Psych: Appearance: grossly normal Affect: normal affect Attitude: cooperative DS: Data Data Completed and Pending Pending studies at discharge: Pending at discharge 08/29/23 13:37 Surgical [PTH] Routine Discharge Plan Discharge Attending physician on discharge: Chana Cheema Discharging Clinician: Chana Cheema Anticipated Discharge Date/Time: 09/01/23 14:00 Patient Disposition: Home, Self-Care Activity: may shower and pelvic rest Diet: heart healthy and low sodium Patient Instructions: Antibiotic Form Stand Alone Forms: General Discharge Information Follow-up/Referrals: Zaid Hope MD [Physician] - 4 Weeks Discharge Medications: New acetaminophen 325 mg Tablet 650 mg PO Q6H Qty: 60 0RF hydrocodone-acetaminophen 5-325 mg Tablet See Rx Instructions .ROUTE .COMPLEX PRN (Reason: Breakthrough Pain Rated 4-6) Qty: 30 0RF Rx Instructions: Take 1-2 tablets every 4-6 hours as needed for severe pain (max 10 tabs in 24 hours) docusate sodium 100 mg Capsule 100 mg PO BID Qty: 90 0RF labetalol 200 mg tablet 600 mg PO TID 30 Days Qty: 270 5RF Continued sertraline [Zoloft] 100 mg tablet 100 mg PO DAILY Qty: 90 3RF albuterol sulfate 90 mcg/actuation HFA aerosol inhaler 2 puff inhalation Q4H PRN (Reason: shortness of breath or wheezing) Qty: 6.7 3RF cetirizine [Zyrtec] 10 mg tablet 10 mg PO DAILY PRN (Reason: Allergic Symptoms) omega 2-lxw-bga-fish oil [Fish Oil] 1,000 mg (120 mg-180 mg) capsule 1 cap PO DAILY prenat.vits,osmin,[id number] Tablet 1 tablet PO DAILY ondansetron HCl 4 mg tablet 4 mg PO Q6H PRN (Reason: nausea and vomiting) Qty: 30 1RF labetalol 200 mg tablet 600 mg PO Q8H famotidine 20 mg tablet 20 mg PO DAILY Qty: 14 0RF ferrous sulfate 27 mg iron Tablet 65 mg PO DAILY Date of admission: 08/27/23 16:02 Primary Care Provider: Ja
[2023-09-01] MEDS: MULTIVIT/MIN/PREN/FOL AC/IRON TABLET 1 TAB PO (08:31)
[2023-09-01] MEDS: FAMOTIDINE 20 MG TABLET PO (08:32)
[2023-09-01] MEDS: POLYSACCHARIDE IRON COMPLEX 150 MG CAPSULE PO (08:32)
[2023-09-01] MEDS: DOCUSATE SODIUM 100 MG CAPSULE PO (08:32)
[2023-09-01] MEDS: SERTRALINE HCL 50 MG TABLET 100 MG PO (08:32)
[2023-09-01] MEDS: SIMETHICONE 80 MG TAB.CHEW PO ×2 (08:32→12:07)
[2023-09-01] MEDS: OMEGA 3 POLYUNSAT FATTY ACIDS 1 GM CAP PO (08:33)
[2023-09-01] MEDS: MEASLES,MUMPS,RUBELLA VACCINE 0.5 ML VIAL SUB-Q (08:36)
--- NOTE | 2023-09-01 11:13 | PC.NURSE ---
Patient viewed the discharge video Mother & Baby Care, The First Two Weeks . Patient was given the opportunity and encouraged to ask questions. Patient verbalized understanding of information shared and has been given the mother/baby guide for home reference.
--- NOTE | 2023-09-01 11:34 | PC.NURSE ---
[id number] Consulted with mother concerning needs and she shared that she has some good feedings, some not so good, and she is supplementing with formula bottles. Mother is feeding appropriately for growth of infant and understands stimulating infant to eat if needed. We discussed protecting her milk supply and self-care. has had appropriate feedings breast/bottle in the last 24 hours meets the outcomes for weight, output, blood sugar and jaundice at this time. Mother states she has had 8 breast stimulations combined with pumping and in the last 24 hours. Reinforced understanding of milk production, transition of milk, signs of adequate intake, transition of stool, prevention/relief of engorgement, plugged ducts, mastitis, responsive watching for feeding cues, the different methods of stimulating infant to breastfeed 1-3 hours after the start of the last feeding, community resources, and when to call a provider using the resource of the feeding sheet along with the mom and baby guide. Mother voiced understanding of the information shared, is confident to continue feeding her at home, denies any additional assistance or education at this time, however; offer of services was shared and she was encouraged to call. Reported to the Primary RN.
[2023-09-02 11:23] VITALS: BP 137/60; PULSE 69; RESP 18; TEMP 37.1; O2SAT 100
--- NOTE | 2023-09-06 21:08 | WPDHPUPDATE1 ---
History and Physical Update Update Date/Time: 09/06/23 21:08 History and Physical has been reviewed, including an updated exam of the patient. There are NO changes in the patient's condition. Risks, benefits, and alternatives have been discussed and questions answered. Patient agrees to proceed with procedure.
== END 2023-09-01 12:16 | disposition home or self-care (01) | DRG 787 ==
LOC: ANHLDR 16:07 → ANHOB2 08-29 17:12
PROVIDERS: Student in an Organized Health Care Education/Training Program; Admitting Provider Obstetrics & Gynecology; PCP Family Medicine; Visit Provider Obstetrics & Gynecology
PROC: 10D00Z1 Extraction of Products of Conception, Low, Open Approach (ICD-10-PCS; CPT 59514; principal; 2023-08-29 12:30)
DX: O62.0 Primary inadequate contractions (principal); O10.92 Unspecified pre-existing hypertension complicating childbirth; O99.214 Obesity complicating childbirth; O99.52 Diseases of the respiratory system complicating childbirth; E66.01 Morbid (severe) obesity due to excess calories; O99.344 Other mental disorders complicating childbirth; F41.9 Anxiety disorder, unspecified; O14.04 Mild to moderate pre-eclampsia, complicating childbirth; O69.81X0 Labor and delivery complicated by cord around neck, without compression, not applicable or unspecified; Z3A.37 37 weeks gestation of pregnancy; Z37.0 Single live birth; Z86.16 Personal history of COVID-19; G47.30 Sleep apnea, unspecified; J45.909 Unspecified asthma, uncomplicated
CPT/HCPCS: 36415; 80053; 84550; 85025; 86592; 86703; 86850; 86900; 86901; 88307; 90710; A9270; G0432; J0456; J0690; J2274; J2405; J2590; J3010; J7120